=== PATIENT | female | born 1955 | race Caucasian/White ===

== ENCOUNTER 2017-06-27 20:03 | Emergency (ER) | payer BC, OTHER ==
[2017-06-27 20:40] VITALS: BMI 22.4
[2017-06-27 20:46] VITALS: RESP 16; O2SAT 97
[2017-06-27] MEDS ORDERED: Sodium Chloride 0.9% 1,000 ML IV STA (23:11)
[2017-06-27 23:40] LABS: BASO % 0.4 % (0.0-2.0); EOS % 0.1 % (0.0-4.0); HEMOGLOBIN 11.1 g/dL (12.0-16.0); LYMPH % 8.3 % (20.0-40.0); MEAN CORPUSCULAR HEMOGLOBIN 28.3 pg (27.0-31.0); MEAN CORPUSCULAR HGB CONC 33.3 g/dL (33.0-37.0); MEAN PLATELET VOLUME 9.5 fl (7.2-11.7); MONO # 1.2 K/uL (0.0-0.8); MONO % 10.1 % (0.0-10.0); NEUT # 9.6 K/uL (1.8-7.0); NEUT % 81.1 % (50.0-75.0); PLATELET COUNT 127 K/uL (130-400); RBC 3.93 Mil/uL (3.80-5.20); RED CELL DISTRIBUTION WIDTH 14.2 % (11.5-14.5); WHITE BLOOD COUNT 11.8 K/uL (4.8-10.8)
[2017-06-27 23:50] LABS: BLOOD UREA NITROGEN 17 mg/dl (7-17); CALCIUM 8.9 mg/dL (8.4-10.2); GFR AFRICAN-AMERICAN > 60; GFR NON-AFRICAN AMERICAN > 60
--- NOTE | 2017-06-28 00:05 | ED PDOC ---
HPI: General Adult Time Seen by Provider: 06/27/17 23:00 Chief Complaint (Nursing): Flu-like Symptoms Chief Complaint (Provider): Flu-like Symptoms History Per: Patient History/Exam Limitations: no limitations Onset/Duration Of Symptoms: Hrs (x48 hours) Current Symptoms Are (Timing): Still Present Additional Complaint(s): 62 y/o female presents to the ED complaining of body aches, chills headache and fever x 48 hours. Reports an episode of abdominal pain and vomiting which resolved later. Patient was seen by PMD (Dr. Marsh) yesterday and was prescribed Augmentin and ibuprofen for presumed lung infection. Denies sore throat, ear pain, runny nose or any further medical complaints. Past Medical History Reviewed: Historical Data, Nursing Documentation, Vital Signs Vital Signs: Last Vital Signs Temp 99.3 F 06/28/17 02:06 Pulse 77 06/28/17 02:06 Resp 16 06/28/17 02:06 BP 115/58 L 06/28/17 02:06 Pulse Ox 97 06/28/17 02:23 - Medical History PMH: Anxiety, HTN - Surgical History Surgical History: No Surg Hx - Family History Family History: States: Unknown Family Hx - Social History Current smoker - smoking cessation education provided: No Alcohol: None Drugs: Denies - Home Medications Home Medications: Ambulatory Orders Medication Instructions Recorded Alprazolam [Xanax] 0.5 mg PO DAILY PRN 05/27/15 Levothyroxine Sodium [Unithroid] 0.1 mg PO DAILY 05/27/15 PARoxetine CR [Paxil CR] 12.5 mg PO DAILY 05/27/15 Propranolol Hydrochloride [Inderal 80 mg PO DAILY 05/27/15 LA] Simvastatin 10 mg PO DAILY 05/27/15 Nitrofurantoin Macrocrystals 100 mg PO BID 5 Days cap 06/28/17 [Macrobid] - Allergies Allergies/Adverse Reactions: Allergies Allergy/AdvReac Type Severity Reaction Status Date / Time No Known Allergies Allergy Verified 06/27/17 20:40 Review of Systems ROS Statement: Except As Marked, All Systems Reviewed And Found Negative (As per HPI, otherwise negative) Constitutional: Positive for: Fever, Chills, Other (Body aches) ENT: Negative for: Ear Pain, Nose Discharge (runny nose), Throat Swelling (sore throat) Gastrointestinal: Positive for: Vomiting, Abdominal Pain Neurological: Positive for: Headache Physical Exam - Reviewed Nursing Documentation Reviewed: Yes Vital Signs Reviewed: Yes - Physical Exam Appears: Positive for: Well, Non-toxic, No Acute Distress Head Exam: Positive for: ATRAUMATIC, NORMAL INSPECTION, NORMOCEPHALIC Skin: Positive for: Normal Color, Warm (warm to touch), Dry Eye Exam: Positive for: EOMI, Normal appearance, PERRL ENT: Positive for: Normal ENT Inspection Neck: Positive for: Normal, Painless ROM, Supple Cardiovascular/Chest: Positive for: Regular Rate, Rhythm. Negative for: Murmur Respiratory: Positive for: Normal Breath Sounds. Negative for: Accessory Muscle Use, Respiratory Distress Gastrointestinal/Abdominal: Positive for: Normal Exam, Bowel Sounds, Soft Back: Positive for: Normal Inspection. Negative for: L CVA Tenderness, R CVA Tenderness, Vertebral Tenderness Extremity: Positive for: Normal ROM. Negative for: Deformity, Swelling Neurologic/Psych: Positive for: Alert, Oriented (x3) - Laboratory Results Result Diagrams: 06/27/17 23:30 06/27/17 23:30 - ECG O2 Sat by Pulse Oximetry: 97 (RA) Pulse Ox Interpretation: Normal Medical Decision Making Medical Decision Making: Time: 23:09 Initial Impression: influenza Plan: CBC w/ differential Toradol 30mg IVP Sodium chloride 1l IV Blood culture Influenza A B Urinalysis Time: 02:23 Upon provider reevaluation patient is feeling better, is medically stable, and requires no further treatment in the ED at this time. Patient will be discharged home. Counseling was provided and all questions were answered regarding diagnosis. There is agreement to discharge plan. Return if symptoms persist or worsen. Told to stop Augmentin and take macrobid instead. Clinical Impression: Influenza Scribe Attestation: Documented by Shae Elias acting as a scribe for Anjel Granda MD. MD Scribe Attestation: All medical record entries made by the Donna were at my direction and personally dictated by me. I have reviewed the chart and agree that the record accurately reflects my personal performance of the history, physical exam, medical decision making, and the department course for this patient. I have also personally directed, reviewed, and agree with the discharge instructions and disposition. Disposition - Clinical Impression Clinical Impression: URI (upper respiratory infection), UTI (urinary tract infection) - Disposition Referrals: Sharri Cole [Outside] Disposition: Routine/Home Disposition Time: 02:23 Condition: IMPROVED Prescriptions: Nitrofurantoin Macrocrystals [Macrobid] 100 mg PO BID 5 Days cap Instructions: Urinary Tract Infection in Men (DC), Upper Respiratory Infection (ED) Forms: [employer] (Pakistani)
[2017-06-28 01:53] LABS: BANDS 2 % (0-2); LYMPHOCYTE 10 % (20-50); MONOCYTE 13 % (0-10); NEUTROPHIL 74 % (42-75); REACTIVE LYMPHOCYTES 1 % (0-0); TOTAL CELLS COUNTED 100
[2017-06-28 01:54] LABS: PLATELET ESTIMATE SLIGHTLY DECREASED (NORMAL)
[2017-06-28 01:55] LABS: ANISOCYTOSIS SLIGHT; HYPOCHROMIC SLIGHT; OVALOCYTES SLIGHT; STOMATOCYTES SLIGHT
[2017-06-28 02:07] VITALS: BP 115/58; PULSE 77; TEMP 99.3
[2017-06-28 02:23] LABS: SQUAMOUS EPITHIAL < 1 /hpf (0-5); URINE BILIRUBIN NEGATIVE (NEGATIVE); URINE BLOOD MODERATE (NEGATIVE); URINE CLARITY SLIGHTY-CLOUDY (Clear); URINE COLOR YELLOW (YELLOW); URINE GLUCOSE (UA) NEG (Normal); URINE LEUKOCYTE ESTERASE MOD Leu/uL (Negative); URINE NITRATE NEGATIVE (NEGATIVE); URINE PROTEIN 30 mg/dL (NEGATIVE)
== END 2017-06-28 03:20 | disposition home or self-care (01) ==
LOC: H.ER 20:03
DX: N39.0 Urinary tract infection, site not specified (principal); J06.9 Acute upper respiratory infection, unspecified; F41.9 Anxiety disorder, unspecified; I10 Essential (primary) hypertension
CPT/HCPCS: 80048; 81003; 85025; 87040; 87086; 87804; 96361; 96374; 99283; J1885; J7040